=== PATIENT | female | born 1940 | race Caucasian/White ===

== ENCOUNTER → 2019-05-15 | Outpatient (CLI) | payer MEDICARE ==
[2017-04-21 18:30] VITALS: BP 114/55
[~2019-05-15] MED LIST: ASPI-482 PO; CARV25TA2 PO; DIGO250T PO; FURO80TA3 PO; GABA600T7 PO; LEVO125T5 PO; POTA20TA82 PO; RANO500T2 PO; SIMV40TA3 PO; SPIR50TA4 PO
--- NOTE | 2019-05-16 13:07 | CARD ---
MR#: [id number] Date of Study: 05/15/2019 Ordering Physician: ANALISA FIGUEROA, Referring Physician: ANALISA FIGUEROA, Tech: Celena Hull APPROVED REPORT EXAM: Two-dimensional and M-mode echocardiogram with Doppler and color Doppler. Other Information Quality : AverageHR: 69bpm INDICATION Syncope RISK FACTORS Hypertension Hyperlipidemia 2D DIMENSIONS RVDd3.4 (2.9-3.5cm)Left Atrium(2D)2.8 (1.6-4.0cm) IVSd1.2 (0.7-1.1cm)Aortic Root(2D)3.0 (2.0-3.7cm) LVDd4.1 (3.9-5.9cm)LVOT Diameter2.1 (1.8-2.4cm) PWd1.1 (0.7-1.1cm)LVDs3.1 (2.5-4.0cm) FS (%) 15.1 %SV18.4 ml LVEF(%)32.6 (>50%) Aortic Valve AoV Peak Alex.123.0cm/sAoV VTI18.0cm AO Peak GR.6.0mmHgLVOT Peak Alex.78.5cm/s LVOT VTI 13.54cmAO Mean GR.3mmHg JARETT (VMAX)1.12xe0ZXK (VTI)2.70cm2 Mitral Valve MV E Phkldpko67.5cm/sMV A Vlbvojmc67.4cm/s E/A Ratio0.5 TDI E/Lateral E'5.7E/Medial E'10.7 Pulmonary Valve PV Peak Imshhbeg29.8cm/sPV Peak Grad.4mmHg Tricuspid Valve TR P. Ukkxekgq484pl/sRAP AFWKWLTB3csAh TR Peak Gr.55toEtFAYO29ipNp Pulmonary Vein S1 Krytyrxp95.1cm/sD2 Sjnrmyei40.9cm/s PVa pxgkqdzt585xmzo LEFT VENTRICLE The left ventricle is normal size. There is mild concentric left ventricular hypertrophy. The left ve ntricular systolic function is mildly impaired. The Ejection Fraction is 40-45%. Abnormal septal brett on probably from conduction abnormality. Transmitral Doppler flow pattern is Grade I-abnormal relaxat ion pattern. RIGHT VENTRICLE The right ventricle is normal size. There is normal right ventricular wall thickness. The right ventr icular systolic function is normal. ATRIA The left atrium size is normal. The right atrium size is normal. The interatrial septum is intact wit h no evidence for an atrial septal defect or patent foramen ovale as noted on 2-D or Doppler imaging. AORTIC VALVE The aortic valve is normal in structure and function. Doppler and Color Flow revealed trace aortic re gurgitation. There is no significant aortic valvular stenosis. MITRAL VALVE The mitral valve is normal in structure and function. There is no evidence of mitral valve prolapse. There is no mitral valve stenosis. Doppler and Color-flow revealed trace mitral regurgitation. TRICUSPID VALVE The tricuspid valve is normal in structure and function. Doppler and Color Flow revealed trace tricus pid regurgitation with an estimated PAP of 32 mmHg. There is no tricuspid valve stenosis. PULMONIC VALVE The pulmonary valve is normal in structure and function. Doppler and Color Flow revealed trace pulmon ic valvular regurgitation. GREAT VESSELS The aortic root is normal in size. The ascending aorta is Mildly dilated. The IVC is dilated and patti apses >50% with inspiration. PERICARDIAL EFFUSION There is no evidence of significant pericardial effusion. Critical Notification Critical Value: No <Conclusion> The left ventricular systolic function is mildly impaired. The Ejection Fraction is 40-45%. Abnormal septal motion probably from conduction abnormality. Transmitral Doppler flow pattern is Grade I-abnormal relaxation pattern. Trace mitral regurgitation. Trace tricuspid regurgitation with an estimated PAP of 32 mmHg. There is no evidence of significant pericardial effusion. Signed by : Jr Verde, Electronically Approved : 05/15/2019 13:33:20
== END | disposition home or self-care (01) ==
LOC: ECHO 08:48
PROVIDERS: ATTEND Internal Medicine Cardiovascular Disease
DX: I11.9 Hypertensive heart disease without heart failure (principal); R55 Syncope and collapse
CPT/HCPCS: 93306

== ENCOUNTER → 2019-06-19 | Outpatient (CLI) | payer MEDICARE ==
[2017-04-21 18:30] VITALS: BP 114/55
[2019-06-19 15:38] LABS: BASO # 0.1 x10^3/uL (0.0-0.2); BASO % 1 % (0-3); EOS # 0.4 x10^3/uL (0.0-0.7); EOS % 5 % (0-3); HEMATOCRIT 41.4 % (36.0-47.0); HEMOGLOBIN 14.1 g/dL (12.0-15.5); LYMPH # 1.2 x10^3/uL (1.0-4.8); LYMPH % 15 % (24-48); MEAN CORPUSCULAR HEMOGLOBIN 31 pg (25-35); MEAN CORPUSCULAR HGB CONC 34 g/dL (31-37); MEAN CORPUSCULAR VOLUME 90 fL (79-100); MONO # 0.7 x10^3/uL (0.0-1.1); MONO % 8 % (0-9); NEUT # 5.6 x10^3/uL (1.8-7.7); NEUT % 71 % (31-73); PLATELET COUNT 253 x10^3/uL (140-400); RED BLOOD COUNT 4.59 x10^6/uL (3.50-5.40); RED CELL DISTRIBUTION WIDTH 13.6 % (11.5-14.5); WHITE BLOOD COUNT 7.8 x10^3/uL (4.0-11.0)
--- NOTE | 2019-06-19 15:39 | RAD ---
Chest radiograph 06/19/2019 12:00 AM INDICATION: Shortness of breath COMPARISON: 02/22/2019 TECHNIQUE: Frontal and lateral views of the chest are provided. FINDINGS: The cardiomediastinal silhouette is within normal limits.. Chest wall cardiac device is identified with leads projecting over the right atrium and right ventricle. There are no pleural effusions. There is no pulmonary vascular congestion. There is no pneumothorax. Patchy opacities project over the right lung base which may represent pulmonary infiltrate in the appropriate clinical setting. No significant osseous abnormality is identified. IMPRESSION: Patchy opacities project over the right lung base which may represent pulmonary infiltrate in the appropriate clinical setting. Short-term follow-up radiograph may be of benefit to assess for resolution. Electronically signed by: Shwetha Merritt MD (06/19/2019 3:37 PM) [facility]
[2019-06-19 15:56] LABS: ALBUMIN 3.9 g/dL (3.4-5.0); ALBUMIN/GLOBULIN RATIO 0.9 (1.0-1.7); CREATININE 1.1 mg/dL (0.6-1.0); POTASSIUM 3.8 mmol/L (3.5-5.1); TOTAL BILIRUBIN 0.8 mg/dL (0.2-1.0); TOTAL PROTEIN 8.3 g/dL (6.4-8.2)
== END | disposition home or self-care (01) ==
LOC: LAB 14:49
PROVIDERS: ATTEND Internal Medicine Infectious Disease
DX: R91.8 Other nonspecific abnormal finding of lung field (principal); R53.83 Other fatigue; R06.00 Dyspnea, unspecified
CPT/HCPCS: 36415; 71046; 80053; 85025

== ENCOUNTER → 2019-06-21 | Outpatient (CLI) | payer MEDICARE ==
[2017-04-21 18:30] VITALS: BP 114/55
--- NOTE | 2019-06-24 11:24 | CARD ---
MR#: [id number] Date of Study: 06/21/2019 Ordering Physician: ADOLPH MARTIN, Referring Physician: ADOLPH MARTIN, Tech: Celena Hull APPROVED REPORT EXAM: Two-dimensional and M-mode echocardiogram with Doppler and color Doppler. Other Information Quality : AverageHR: 66bpm Rhythm : Pacemaker INDICATION Dyspnea RISK FACTORS Hypertension Hyperlipidemia Diabetes 2D DIMENSIONS RVDd3.9 (2.9-3.5cm)Left Atrium(2D)2.7 (1.6-4.0cm) IVSd1.0 (0.7-1.1cm)Aortic Root(2D)2.9 (2.0-3.7cm) LVDd4.3 (3.9-5.9cm)LVOT Diameter2.1 (1.8-2.4cm) PWd1.0 (0.7-1.1cm)LVDs3.7 (2.5-4.0cm) FS (%) 14.2 %SV24.8 ml LEFT VENTRICLE Limited study to evaluate LV function. The left ventricle is normal size. There is borderline concent tamra left ventricular hypertrophy. The systolic function is mildly impaired. The Ejection Fraction is estimated at 40%. There is a probable paced rhythm and apical hypokinesis. Diastology not performed. RIGHT VENTRICLE The right ventricle is normal size. There is normal right ventricular wall thickness. The right ventr icular systolic function is normal. There is a device lead in the right ventricle. ATRIA The left atrium size is normal. The right atrium size is normal. There is a device lead seen in the r ight atrium. The interatrial septum is intact with no evidence for an atrial septal defect or patent foramen ovale as noted on 2-D or Doppler imaging. AORTIC VALVE The aortic valve is thickened but opens well. Doppler and color-flow analysis was not performed. Ther e is no significant aortic valvular stenosis. MITRAL VALVE The mitral valve is normal in structure and function. There is no evidence of mitral valve prolapse. There is no mitral valve stenosis. Doppler and color-flow analysis was not performed. PULMONIC VALVE The pulmonary valve is normal in structure and function. Doppler and color-flow analysis was not perf ormed. GREAT VESSELS The aortic root is normal in size. The ascending aorta is milldly dilated. Measuring 3.7 cm. The IVC is dilated. PERICARDIAL EFFUSION There is no evidence of significant pericardial effusion. Critical Notification Critical Value: No <Conclusion> Limited study to evaluate LV function. The left ventricle is normal size. The systolic function is mildly impaired. The Ejection Fraction is estimated at 40%. There is a probable paced rhythm and apical hypokinesis. There is borderline concentric left ventricular hypertrophy. There is no evidence of significant pericardial effusion. Signed by : Jj Roberts MD Electronically Approved : 06/21/2019 15:20:05
== END | disposition home or self-care (01) ==
LOC: ECHO 12:30
PROVIDERS: ATTEND Internal Medicine Infectious Disease
DX: I11.9 Hypertensive heart disease without heart failure (principal); E78.5 Hyperlipidemia, unspecified; E11.9 Type 2 diabetes mellitus without complications
CPT/HCPCS: 93308; 93325

== ENCOUNTER → 2019-10-23 | Outpatient (CLI) | payer MEDICARE ==
[2017-04-21 18:30] VITALS: BP 114/55
[~2019-10-23] MED LIST changes: -DIGO250T PO; +DIGO250T3 PO; +POTA20TA4 PO; -POTA20TA82 PO; +SIMV40TA18 PO; -SIMV40TA3 PO
--- NOTE | 2019-10-23 14:20 | NUR ---
PT MONITORED PER RN DURING MRI. Pacemaker rep present as well. Pt tolerated MRI without difficulty. Pt HR stable
--- NOTE | 2019-10-23 15:50 | RAD ---
MRI Lumbar Spine without contrast History: Low back pain, right leg radiculopathy Technique: Multiplanar, multi sequential noncontrast MR imaging was performed of the lumbar spine. Comparison: Post myelogram CT February 28, 2004 and outside facility MRI lumbar spine exam March 18, 2013 Findings: There is motion degradation. There is now interbody fusion L4-5. There are multilevel Schmorl's nodes, large foci at L1-2 with adjacent edema about the endplates. There is minimal edema about smaller L2-3 Schmorl's node. There is also large superior L1 Schmorl's node There is no fluid in the intervertebral disc spaces. There is fairly advanced degenerative disc disease at L3-4 and L2-3 and to a lesser degree at L1-2 and L5-S1. Conus terminates near the L1-2 level. There is mild levoscoliosis centered near L2-3. There is grade 1 anterior spondylolisthesis at L3-4 and L2-3, negligible anterior spondylolisthesis L1-L2. T12-L1: There is very shallow posterior protrusion, spinal canal and neural foramina overall adequate. 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 L1-L2: There is also posterior epidural fat centrally. There is moderate to severe buckling of the ligamentum flavum and moderate facet hypertrophic change. There is prominent broad posterior bulge about 3 mm AP, indentation upon the ventral thecal sac somewhat greater in the left lateral recess. Combination of findings results in severe spinal stenosis, left greater than right lateral recess stenosis with near complete effacement of subarachnoid space. There is hicp-lv-kxgkduum narrowing of the left neural foramen, bulge near the undersurface of the exiting left L1 nerve root in the proximal extraforaminal region, right neural foramen overall adequate. L2-L3: There is prominence of posterior epidural fat centrally. There is moderate facet hypertrophic change and mild buckling of the ligamentum flavum. There is mild partial uncovering of the posterior aspect of the disc due to spondylolisthesis with minimal superimposed bulge. Combination of findings results in overall moderate attenuation of the thecal sac, some preserved subarachnoid space, posterior attenuation of the thecal sac centrally by epidural lipomatosis. There is mild posterior narrowing of the right neural foramen by facet, left neural foramen adequate. L3-L4: There is moderate facet hypertrophic change and buckling of the ligamentum flavum. There is partial uncovering of the posterior aspect of the disc with superimposed minimal disc osteophyte complex and bulge. There is overall moderate spinal stenosis, left greater than right lateral recess stenosis. There is mild narrowing of the right neural foramen, left neural foramen overall adequate. L4-L5: There are laminectomy defects. Spinal canal is adequate. There is mild narrowing of the left neural foramen by osteophytes, right neural foramen overall adequate. L5-S1: There is moderate facet degenerative change and minimal buckling of the ligamentum flavum. Spinal canal is overall adequate. Disc osteophyte complex and likely protrusion impinges upon the exiting left L5 nerve root in the more distal left neural foramen and left extraforaminal region, at least moderate narrowing greater distally. There is mild posterior narrowing of the right neural foramen. Impression: 1. There is severe spinal stenosis at L1-L2, moderate spinal stenosis at L2-3 and L3-4 as described. 2. There is interbody fusion L4-5, also multilevel lumbar degenerative disc disease greatest at L2-3 and L3-4. 3. There is neural foramina compromise as stated greatest the left at L5-S1, lesser degree of narrowing on the left at L1-L2. 4. There are multilevel Schmorl's nodes, endplate edema about large L1-L2 Schmorl's nodes more likely reactive in etiology, lesser degree of mild edema about L2-3 Schmorl's nodes. 5. There is lumbar levoscoliosis and abnormal alignment as stated. Electronically signed by: Marlo Garibay MD (10/23/2019 3:47 PM) [facility]
== END | disposition home or self-care (01) ==
LOC: MRI 12:39
DX: M43.26 Fusion of spine, lumbar region (principal); M51.46 Schmorl's nodes, lumbar region; M51.16 Intervertebral disc disorders with radiculopathy, lumbar region; M43.16 Spondylolisthesis, lumbar region; M51.24 Other intervertebral disc displacement, thoracic region; M89.38 Hypertrophy of bone, other site; M48.07 Spinal stenosis, lumbosacral region; M25.78 Osteophyte, vertebrae; M47.26 Other spondylosis with radiculopathy, lumbar region; M47.818 Spondylosis without myelopathy or radiculopathy, sacral and sacrococcygeal region
CPT/HCPCS: 72148

== ENCOUNTER → 2020-02-05 | Outpatient (CLI) | payer MEDICARE ==
[2017-04-21 18:30] VITALS: BP 114/55
[~2020-02-05] MED LIST changes: +APIX5TAB PO; +FURO40TA4 PO; +LEVO75TA5 PO; +SENN8.8S5 PO
--- NOTE | 2020-02-05 11:45 | PAIN ---
DATE OF SERVICE: 02/05/2020 INITIAL CONSULTATION FOR PAIN CLINIC CHIEF COMPLAINT: Low back and right greater than left lower extremity pain. HISTORY OF PRESENT ILLNESS: This is a 79-year-old female who presents with history of pain for many years, about 4 years, increasing over the past 1 year, at the most without any specific injury or action that she is aware of. She did have an interbody fusion of lumbar spine several years ago. The pain was doing much better after the surgery, but the pain has returned now over the past few years, again worse over the past year or so. No specific injury or action she is aware of. The patient reports the pain is across the low back and in the bilateral lower extremities, mostly in the posterior gluteus, posterior thigh, posterior calf, more on the right than the left and across the low back. The patient reports it is constant and sharp in the low back radiating numbness in the legs and coldness in the right foot, burning, cramping, aching as well. The patient reports it awakens her from sleep several times a night, does affect her bowel or bladder control, but no loss of continence, just some increased urgency, especially with coughing. The patient reports it does affect her ability to walk, but she is not using any assistive devices such as canes or walkers to ambulate. The patient has had physical therapy in the past, had some injections in the past before surgery and she is not sure what these were, but is doing exercise currently and using heat applications to her back as well. The patient reports her disability rating from 0-10, 10 being the worst, is an 8 with family and home responsibilities, recreation, social activity, occupation, self-care and life support activities, 0 with sexual behavior. The patient did have MRI scan of the lumbar spine, which is dated 10/23/2019 showing severe spinal stenosis at L1-L2, moderate spinal stenosis at L2-L3 and L3-L4, interbody fusion at L4-L5 with neural foraminal compromise, greatest on the left L5-S1, lesser degree of narrowing at left L1-L2. The patient reports no loss of motor function, but significant fatigability, especially the right lower extremity with ambulation and activity. PAST MEDICAL HISTORY: Significant for hearing loss, shortness of breath, asthma, pacemaker placement, history of colitis, urinary tract infections, arthritis. PREVIOUS SURGERIES: Include total thyroidectomy, lumbar fusion with interbody fusion, bilateral cataract extraction, abdominal surgery in December of this year for scar tissue resection and total abdominal hysterectomy, previous appendectomy, right eardrum surgery and scar tissue on the bladder. ALLERGIES: The patient has no known drug allergies. CURRENT MEDICATIONS: Include Lasix, levothyroxine, Eliquis, senna, gabapentin, carvedilol, simvastatin, potassium, daily baby aspirin. FAMILY HISTORY: Significant for no major medical problems or conditions that she is aware of. SOCIAL HISTORY: The patient drinks about 2 glasses of alcohol a week, does not use any illegal, illicit or recreational drugs. Does not smoke, is , and lives with her . 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 REVIEW OF SYSTEMS: The patient's review of systems is positive for those items mentioned in history of present illness. All systems reviewed and otherwise negative. It is complete, full and well documented on the patient's chart. PHYSICAL EXAMINATION: VITAL SIGNS: The patient's blood pressure is 129/47, pulse 78, respirations 16, temperature 98.4 degrees Fahrenheit, height is 5 feet 2 inches, weight is 137 pounds. GENERAL: The patient is awake, alert, oriented, appropriate, very pleasant demeanor. HEENT: Shows normocephalic, atraumatic. Extraocular movements are intact and symmetrical. Oral cavity shows mucous membranes moist and pink. Dentition is intact. NECK: Shows anterior throat supple without palpable lymphadenopathy noted. Swallow reflex symmetrical. CHEST: Shows normal on inspection. Breath sounds clear to auscultation bilaterally. HEART: Shows S1, S2 clear. No murmurs auscultated. ABDOMEN: Soft, nontender, nondistended. No palpable organomegaly is noted. No rebound or guarding demonstrated. The patient has a well-healed surgical scar in the abdomen as well. BACK: Shows spine grossly in the midline, slight exaggerated thoracic kyphosis and minor flattening of lumbar lordotic curvature. Well-healed surgical scarring noted in the lumbar distribution. Lumbar paraspinous muscle shows symmetrical, but with palpation shows some moderate palpation tenderness bilaterally, but without specific trigger points, without radiation throughout the upper, middle and lower distribution of paraspinous muscles. No specific tenderness over the spinous processes, sacrum or sacroiliac regions. The patient shows good rotational motion of lumbar spine, both laterally as well as extension and flexion without significant increase in pain. EXTREMITIES: Lower extremities show deep tendon reflexes at 1+ in the patellar and tendo calcaneus tendons. Motor exam is approximately 4 on a scale of 5, but equal dorsiflexion, extension, quadriceps and hamstring flexion symmetrical. Peripheral pulses are 1+ posterior tibia. No peripheral edema is noted bilaterally. Lower extremities are warm and dry to touch, equal in color and appearance. Straight leg raise noted to be slightly positive on the right about 35 degrees, decreased with knee flexion, left side is negative. Gaenslen's and Kenneth's maneuvers are grossly negative bilaterally. The patient is able to stand, has difficulty trying to stand on her toes, especially putting all her weight on her right leg causes significant difficulty to walk and she is walking with an antalgic gait favoring the right lower extremity fairly significantly. SKIN: Shows warm and dry, good turgor. No edema. No sores, rashes or bruising. IMPRESSION: 1. This is a 79-year-old female with long history of low back, bilateral lower extremity pain, status post lumbar fusion. 2. MRI scan of lumbar spine as noted. 3. Arthritis. 4. Asthma. 5. Hearing loss. 6. Pacemaker with anticoagulation therapy. PLAN: Options were discussed with the patient including conservative medical managements, physical therapies and interventional techniques. She would like to pursue interventional techniques. We discussed lumbar epidural steroid injections using description as well as anatomical models to describe the procedure. The patient will return after checking with the patient's paradi operator to hold the Eliquis for 3 days. If this is deemed safe and appropriate, we will have her hold this and return for lumbar epidural steroid injection at that time. JULES TOMLINSON MD DR: BRIANNA/matthew JOB#: [id number] / [id number]
== END | disposition home or self-care (01) ==
LOC: PNCL 09:04
PROVIDERS: ATTEND Anesthesiology
DX: J45.909 Unspecified asthma, uncomplicated (principal); M19.90 Unspecified osteoarthritis, unspecified site; H91.90 Unspecified hearing loss, unspecified ear; Z79.01 Long term (current) use of anticoagulants
CPT/HCPCS: G0463

== ENCOUNTER → 2020-02-17 | Outpatient (CLI) | payer MEDICARE ==
[2017-04-21 18:30] VITALS: BP 114/55
[~2020-02-17] MED LIST changes: +IOHEXOL 180 MG/ML 10 ML VIAL. ONE; +methylPREDNISolone ACETATE 40 MG/ML VIAL. ONE; +methylPREDNISolone ACETATE 80 MG/ML VIAL. ONE
--- NOTE | 2020-02-17 11:39 | PAIN ---
DATE OF SERVICE: 02/17/2020 PROGRESS NOTE FOR PAIN CLINIC DIAGNOSES: Lumbar radiculopathy with lumbar degenerative disk disease, lumbar spinal stenosis and lumbar post-laminectomy syndrome. HISTORY OF PRESENT ILLNESS: The patient is a 79-year-old female who returns for followup status post initial evaluation and clearance with her customer service associate to hold her Eliquis, she has been off it for 3 days now. Reports still significant pain in low back, right side greater than left on the posterior gluteus, posterior thigh and across the low back as well as the lateral right thigh and lower leg into the calf and the foot on the right. The patient reports it is on the left as well, but much worse on the right side. The patient reports it is 8 on a scale of 10 at its worst over the past week, 8 on average, 8 at its least and is an 8 today. The patient reports it is constant, aching pain radiating as described. No new motor or sensory deficits, no new bowel or bladder incontinence. The patient is taking antibiotics, which she started 3 days ago, but is afebrile and reports she had a UTI that she was not aware of. PHYSICAL EXAMINATION: VITAL SIGNS: The patient's blood pressure 116/76, pulse 76, respirations 18, temperature 98.4 degrees Fahrenheit and weight is 134 pounds. GENERAL: The patient is awake, alert, oriented, appropriate, very pleasant demeanor. HEENT: Shows normocephalic, atraumatic. Extraocular movements are intact and symmetrical. Oral cavity shows mucous membranes moist and pink. Dentition is intact. NECK: Shows anterior throat supple without palpable lymphadenopathy noted. Swallow reflex symmetrical. CHEST: Shows normal on inspection. Breath sounds are clear. No rales, rhonchi or wheezes auscultated. HEART: Shows S1, S2 clear. No murmurs auscultated. ABDOMEN: Soft, nontender, nondistended. No palpable organomegaly is noted. No rebound or guarding demonstrated. BACK: Shows spine grossly in the midline, slightly exaggerated thoracic kyphosis and minor flattening of lumbar lordotic curvature. Lumbar paraspinous muscle shows well-healed surgical scar and with inspection the paraspinous muscles are symmetrical bilaterally. The patient has good rotational motion of lumbar spine, both laterally as well as extension and flexion without difficulty and with palpation shows some mild tenderness in the lower lumbar distribution diffusely bilaterally without radiation. EXTREMITIES: Lower extremities show deep tendon reflexes at 1+ in the patellar and tendo calcaneus tendons. Motor exam is approximately 4 on a scale of 5, but equal and symmetrical dorsiflexion, extension, quadriceps and hamstring flexion. Peripheral pulses are 1+. No peripheral edema bilaterally. Options were discussed with the patient. The patient's old chart was reviewed as her current medication regimen updated. Current review of systems updated today as well. We will proceed with a lumbar epidural steroid injection today with fluoroscopic guidance. Risks were again discussed including, but not limited to bleeding, infection, possibility of epidural hematoma, subsequent neurological compromise, dural puncture, headaches, spinal cord and/or nerve damage, side effects of steroid medication and poor results regarding pain control. The patient understands and wished to proceed. The patient will return to clinic in approximately 2 weeks for followup. She was counseled on return appointment, activity level and side effects to be aware of. DIAGNOSES: Lumbar radiculopathy with lumbar degenerative disk disease, lumbar spinal stenosis and lumbar post-laminectomy syndrome. PROCEDURE: Lumbar epidural steroid injection, translaminar approach L5-S1 level using C-arm fluoroscopic guidance under sterile prep and drape using local anesthetic. MEDICATION INJECTED: A total of 120 mg Depo-Medrol plus 10 mL of preservative-free normal saline and 2 mL of contrast. CONDITION AT DISCHARGE: Stable. The patient tolerated the procedure well, had no complications. JULES TOMLINSON MD DR: BRIANNA/matthew JOB#: [id number] / [id number]
== END ==
LOC: PNCL 09:47
PROVIDERS: ATTEND Anesthesiology
DX: M51.16 Intervertebral disc disorders with radiculopathy, lumbar region (principal); M48.061 Spinal stenosis, lumbar region without neurogenic claudication; M96.1 Postlaminectomy syndrome, not elsewhere classified
CPT/HCPCS: 62323; J1030; J1040; Q9965

== ENCOUNTER → 2020-03-09 | Outpatient (CLI) | payer MEDICARE ==
[2017-04-21 18:30] VITALS: BP 114/55
--- NOTE | 2020-03-09 10:55 | PAIN ---
DATE OF SERVICE: 03/09/2020 PROGRESS NOTE FOR PAIN CLINIC DIAGNOSES: Lumbar radiculopathy with lumbar degenerative disk disease, lumbar spinal stenosis and lumbar post-laminectomy syndrome. HISTORY OF PRESENT ILLNESS: The patient is a 79-year-old female who returns for followup status post lumbar epidural steroid injection x 1. Reports about 50% better improvement in the low back and right lower extremity. The patient reports still some pain in the back and leg with walking, standing, changing positions, but much better. She has been increasing her activity with greater ease and comfort and sleeping better at night, but still wakes up about every 4 hours. The patient reports it is a 7 on a scale of 10 at its worst, average and least over the past week in the low back, bilateral lower extremities, again worse on the right with the cramping, sharp sensation, off and on in intensity, worse with walking and standing. She also has some cramping at night. The patient reports up and down stairs she has been doing much better with working, bending, no new motor or sensory deficits, no bowel or bladder incontinence or other complaints. PHYSICAL EXAMINATION: VITAL SIGNS: The patient's blood pressure is 107/75, pulse 81, respirations are 18, temperature is 98.0 degrees Fahrenheit, height is 5 feet 2 inches, weight is 139 pounds. GENERAL: The patient is awake, alert, oriented, appropriate, very pleasant demeanor. HEENT: Shows normocephalic, atraumatic. Extraocular movements are intact and symmetrical. Oral cavity: Mucous membranes moist and pink. NECK: Shows anterior throat supple without palpable lymphadenopathy noted. Swallow reflex symmetrical. CHEST: Shows normal on inspection. Breath sounds are clear. No rales, rhonchi or wheezes auscultated. HEART: Shows S1, S2 clear. No murmurs. ABDOMEN: Soft, nontender, nondistended. BACK: Shows spine grossly in the midline. Slight exaggeration of thoracic kyphosis and flattening of lumbar lordotic curvature with well-healed surgical scarring noted. Lumbar paraspinous muscle shows symmetrical on inspection, on palpation it shows some moderate tenderness diffusely bilaterally going diffusely without significant radiation. The patient has good rotational motion of lumbar spine, both laterally as well as extension and flexion. No tenderness over the spinous processes, sacrum or sacroiliac regions. EXTREMITIES: Lower extremities show deep tendon reflexes at 1+ in the patellar and tendo calcaneus tendons. Motor exam is approximately 4 on a scale of 5, but symmetrical with dorsiflexion, extension, quadriceps and hamstring flexion. Peripheral pulses are 1+. No peripheral edema is noted bilaterally. Options were discussed with the patient. The patient's old chart was reviewed as her current medication regimen updated. Current review of systems updated today as well. We will proceed with a second in the series of lumbar epidural steroid injection today with fluoroscopic guidance. Risks were again discussed including, but not limited to bleeding, infection, possibility of epidural hematoma, subsequent neurological compromise, dural puncture, headaches, spinal cord and/or nerve damage, side effects of steroid medication and poor results regarding pain control. The patient understands and wished to proceed. The patient will return to clinic in approximately 2 weeks for followup. She was counseled on return appointment, activity level and side effects to be aware of. DIAGNOSES: Lumbar radiculopathy with lumbar degenerative disk disease, lumbar spinal stenosis and lumbar post-laminectomy syndrome. PROCEDURE: Lumbar epidural steroid injection with translaminar approach at L5-S1 level using C-arm fluoroscopic guidance under sterile prep and drape using local anesthetic. MEDICATION INJECTED: A total of 120 mg of Depo-Medrol plus 10 mL of preservative-free normal saline and 2 mL of contrast. CONDITION AT DISCHARGE: Stable. The patient tolerated procedure well, had no complications. JULES TOMLINSON MD DR: BRIANNA/matthew JOB#: [id number] / [id number]
== END ==
LOC: PNCL 09:30
PROVIDERS: ATTEND Anesthesiology
DX: M51.16 Intervertebral disc disorders with radiculopathy, lumbar region (principal); M48.061 Spinal stenosis, lumbar region without neurogenic claudication; M96.1 Postlaminectomy syndrome, not elsewhere classified
CPT/HCPCS: 62323; J1030; J1040; Q9965

== ENCOUNTER → 2020-03-30 | Outpatient (CLI) | payer MEDICARE ==
[2017-04-21 18:30] VITALS: BP 114/55
--- NOTE | 2020-03-30 12:45 | PAIN ---
DATE OF SERVICE: 03/30/2020 PROGRESS NOTE FOR PAIN CLINIC DIAGNOSES: Lumbar radiculopathy with lumbar degenerative disk disease, lumbar spinal stenosis and lumbar post-laminectomy syndrome. HISTORY OF PRESENT ILLNESS: The patient is a 79-year-old female who returns for followup status post lumbar epidural steroid injection x 2. The patient reports she did very well after the last injection about 50% improvement overall with pain in the low back, especially the right lower extremity. The patient reports some pain in the mid upper back as well, but mostly in the low back, right leg, right posterior gluteus, lateral thigh, anterior thigh on the right and medial lower leg on the right side. The patient reports it is worse with walking, standing, changing positions after the last injection; however, she is doing much better with distance walking with sitting, doing work activities, household activities with greater ease and comfort, traveling with greater ease, sleeping well at night, does not awaken her from sleep at night. The patient reports her pain is 7 on a scale of 10 at all times over the past week, worst, least and average and is a 7 today. The patient reports it is sharp, stabbing, can be constant with weightbearing and walking, better with sitting or lying down. The patient reports no new motor or sensory deficits, no new bowel or bladder incontinence. PHYSICAL EXAMINATION: VITAL SIGNS: The patient's blood pressure is 128/74, pulse 72, respirations 18, temperature is 98.3 degrees Fahrenheit, height is 5 feet 2 inches, weight is 144 pounds. GENERAL: The patient is awake, alert, oriented, appropriate, very pleasant demeanor. HEENT: Shows normocephalic, atraumatic. Extraocular movements are intact and symmetrical. Oral cavity: Mucous membranes moist and pink. Dentition is intact. NECK: Shows anterior throat supple without palpable lymphadenopathy noted. Swallow reflex symmetrical. CHEST: Shows normal on inspection. Breath sounds are clear bilaterally. HEART: Shows S1, S2 clear. No murmurs auscultated. ABDOMEN: Soft, nontender, nondistended. BACK: Shows spine grossly in the midline, slight exaggerated thoracic kyphosis and minor flattening of lumbar lordotic curvature. Thoracic paraspinous muscle shows symmetrical ____ diffusely tender with musculature in the paraspinous distribution, more on the left than the right and was very tender with palpation, but without radiation. The patient's lumbar paraspinous muscle shows some flattening of the lumbar lordotic curvature with well-healed surgical scarring noted. Lumbar paraspinous muscle shows symmetrical on inspection, on palpation shows some moderate tenderness diffusely bilaterally, but only diffusely without significant radiation. The patient has good rotational motion of lumbar spine, both laterally as well as extension and flexion without difficulty. EXTREMITIES: Lower extremities show deep tendon reflexes 1+ in the patellar and tendo-calcaneus tendons are equal. Motor exam is 4 on a scale of 5 and equal with dorsiflexion, extension, quadriceps and hamstring flexion. Peripheral pulses are 1+ posterior tibia. No peripheral edema bilaterally. Options were discussed with the patient. The patient's old chart was reviewed as her current medication regimen updated. Current review of systems updated today as well and we will proceed with a third in a series of lumbar epidural steroid injection today with fluoroscopic guidance. Risks were again discussed including, but not limited to bleeding, infection, possibility of epidural hematoma, subsequent neurological compromise, dural puncture, headaches, spinal cord and/or nerve damage, side effects of steroid medication and poor results regarding pain control. The patient understands and wished to proceed. The patient will return to the clinic in approximately 2 weeks for followup. She was counseled on return appointment, activity level and side effects to be aware of. DIAGNOSES: Lumbar radiculopathy with lumbar degenerative disk disease, lumbar spinal stenosis and lumbar post-laminectomy syndrome. PROCEDURE: Lumbar epidural steroid injection, translaminar approach L5-S1 level using C-arm fluoroscopic guidance under sterile prep and drape using local anesthetic. MEDICATION INJECTED: A total of 120 mg Depo-Medrol plus 10 mL of preservative-free normal saline and 2 mL of contrast. CONDITION AT DISCHARGE: Stable. The patient tolerated procedure well, had no complications. JULES TOMLINSON MD DR: BRIANNA/matthew JOB#: [id number] / [id number]
== END ==
LOC: PNCL 09:11
PROVIDERS: ATTEND Anesthesiology
DX: M51.16 Intervertebral disc disorders with radiculopathy, lumbar region (principal); M48.061 Spinal stenosis, lumbar region without neurogenic claudication; M96.1 Postlaminectomy syndrome, not elsewhere classified
CPT/HCPCS: 62323; J1030; J1040; Q9965

== ENCOUNTER → 2020-12-16 | Outpatient (CLI) | payer MEDICARE ==
[~2020-12-16] MED LIST changes: +GADOTERATE 7.5 MMOL/15ML VIAL. IVP ONE; -IOHEXOL 180 MG/ML 10 ML VIAL. ONE; -methylPREDNISolone ACETATE 40 MG/ML VIAL. ONE; -methylPREDNISolone ACETATE 80 MG/ML VIAL. ONE
[2020-12-16 14:07] VITALS: BP 124/77
[2020-12-16 14:20] VITALS: BP 109/62
[2020-12-16 14:35] VITALS: BP 115/67
[2020-12-16 14:45] VITALS: BP 109/66
--- NOTE | 2020-12-16 14:50 | NUR ---
Nabila with [facility] adjusted patient's baseline pacemaker settings for study. Patient tolerated procedure well and vitals remained stable throughout. Pacemaker settings returned to baseline.
--- NOTE | 2020-12-17 09:46 | RAD ---
MRI BRAIN WO+W Date: 12/16/2020 1:48 PM Indication: DIZZINESS, ACUTE INTRACTABLE HEADACHE, APHASIA, IMBALANCE Comparison: None. Technique: Multiplanar multisequence MRI of the brain was performed with and without intravenous cont rast using the standard protocol. 13 cc Clariscan contrast was administered intravenously during the exam. Findings: No acute infarct. No acute or chronic hemorrhage. The ventricles are normal in size and configuration without hydrocephalus. Mild scattered FLAIR hyperintensities in the subcortical and periventricular deep white matter, a nonspecific finding, most commonly seen with chronic small vessel ischemic disea se. Mild generalized cerebral volume loss. No abnormal enhancement. The scalp and calvarium are normal. The pituitary and sella are normal. No Chiari malformation. The v isualized upper cervical spine is normal. The visualized orbits and globes are normal. The visualized paranasal sinuses are clear. Trace right mastoid fluid. Normal flow voids within the vertebral, basilar, and internal carotid arteries indicating patency. IMPRESSION: 1. No acute infarct or hemorrhage. No mass or abnormal enhancement. 2. Mild chronic small vessel ischemic disease and mild generalized cerebral volume loss. Electronically signed by: Marlo Ma MD (12/17/2020 9:44 AM) [id number]
== END ==
LOC: MRI 13:50
PROVIDERS: ATTEND Physician Assistant
DX: I67.82 Cerebral ischemia (principal); R26.89 Other abnormalities of gait and mobility; R47.01 Aphasia
CPT/HCPCS: 70553; A9575